=== PATIENT | male | born 1975 | race Caucasian/White ===

== ENCOUNTER 2020-03-24 09:30 | Inpatient (IN) | payer OTHER ==
--- NOTE | 2020-03-24 10:42 | BHS.RME ---
Substance Use & Tx History - Substance Use History Alcohol Substance amount: 1 liiter of whisky 6 pack beer Frequency of use: Daily Substance route: Oral Date of Last Use: 03/23/20 Marijuana/Hashish Substance amount: $30 Frequency of use: Daily Substance route: Smoking Date of Last Use: 03/23/20 - Last Treatment Date of last treatment: Never Physical/Psych/Mental Status - Behavior General Behavior: Increased activity (restlessness, agitation) Eye Contact: Normal Other Behaviors: Mannerisms - Cooperativeness Cooperativeness: Cooperative - Thinking Thought Processes: Goal Directed Thought content: Future oriented - Physical Health Problems Is patient presently having any pain?: No Does patient presently have any injuries (include location): Yes (s/p fall with knee abrasion) Does patient currently have a fever: No CIWA Nausea/Vomitin-Mild Nausea/No Vomiting Muscle Tremors: 1-None Visible, but [place] Anxiety: 1-Mildly Anxious Agitation: 1-Slight > Activity Paroxysmal Sweats: 1-Minimal Palms Moist Orientation: 0-Oriented Tacttile Disturbances: 1-Very Mild Itch/Numbness Auditory Disturbances: 0-None Visual Disturbances: 0-None Headache: 1-Very Mild CIWA-Ar Total Score: 7
--- NOTE | 2020-03-24 10:45 | HP ---
CIWA Score Nausea/Vomitin-Mild Nausea/No Vomiting Muscle Tremors: 1-None Visible, but [place] Anxiety: 1-Mildly Anxious Agitation: 1-Slight > Activity Paroxysmal Sweats: 1-Minimal Palms Moist Orientation: 0-Oriented Tacttile Disturbances: 1-Very Mild Itch/Numbness Auditory Disturbances: 0-None Visual Disturbances: 0-None Headache: 1-Very Mild CIWA-Ar Total Score: 7 - Admission Criteria [facility]ASAS Guidelines: Admission for Medically Managed Detox: Requires at least one of the followin. CIWA greater than 12 2. Seizures within the past 24 hours 3. Delirium tremens within the past 24 hours 4. Hallucinations within the past 24 hours 5. Acute intervention needed for co occurring medical disorder 6. Acute intervention needed for co occurring psychiatric disorder 7. Severe withdrawal that cannot be handled at a lower level of care (continued vomiting, continued diarrhea, abnormal vital signs) requiring intravenous medication and/or fluids 8. Patient presents the following: Seizures, delirium tremens or hallucinations in the past 12 hours Admission Criteria Met: Admission criteria met Admission ROS [facility] Chief Complaint: Withdrawal sx Allergies/Adverse Reactions: Allergies Allergy/AdvReac Type Severity Reaction Status Date / Time shellfish derived Allergy Intermediate Rash Verified 03/24/20 11:18 History of Present Illness: Patient is a 44 years old male brought in from [facility] where he was observed last night for alcohol intoxication. As per patient, he was given IVF, no other meds were given. He has no recollection of how he ended up in the ED. He reports several such blackouts in the past. This is his first detox treatmen t. Exam Limitations: No Limitations - Ebola screening Have you traveled outside of the country in the last 21 days: No Have you had contact with anyone from an Ebola affected area: No Have you been sick,other than usual withdrawal symptoms: No Do you have a fever: No - Review of Systems Constitutional: Weakness EENT: reports: No Symptoms Reported Respiratory: reports: Cough (r/t smoking) Cardiac: reports: No Symptoms Reported GI: reports: Abdominal cramping Musculoskeletal: reports: Back Pain, Joint Pain, Muscle Pain, Muscle Weakness Integumentary: reports: Bruising Neuro: reports: Headache, Numbness Endocrine: reports: No Symptoms Reported Hematology: reports: No Symptoms Reported Psychiatric: reports: No Sypmtoms Reported Other Systems: Reviewed and Negative Patient History - Patient Medical History Hx Anemia: No Hx Asthma: No Hx Chronic Obstructive Pulmonary Disease (COPD): No Hx Cancer: No Hx Cardiac Disorders: No Hx Congestive Heart Failure: No Hx Hypertension: No Hx Hypercholesterolemia: No Hx Pacemaker: No HX Cerebrovascular Accident: No Hx Seizures: No Hx Dementia: No Hx Diabetes: No Hx Gastrointestinal Disorders: No Hx Liver Disease: No Hx Genitourinary Disorders: No Hx Sexually Transmitted Disorders: No Hx Renal Disease (ESRD): No Hx Thyroid Disease: No Hx Human Immunodeficiency Virus (HIV): No Hx Hepatitis C: No Hx Depression: No Hx Suicide Attempt: No Hx Bipolar Disorder: No Hx Schizophrenia: No - Patient Surgical History Past Surgical History: No - PPD History Previous Implant?: Yes Documented Results: Negative w/o proof Implanted On Prior [facility] Admission?: No PPD to be Administered?: Yes - Smoking Cessation Smoking history: Current every day smoker Have you smoked in the past 12 months: Yes Aproximately how many cigarettes per day: 40 Hx Chewing Tobacco Use: No Initiated information on smoking cessation: Yes 'Breaking Loose' booklet given: 03/24/20 - Substances abused Alcohol Substance route: Oral Frequency: Daily Amount used: WHISKEY 1 L Age of first use: 13 Date of last use: 03/24/20 Cocaine Substance route: Inhalation Frequency: 1-2 times per week Amount used: 1 BAG Age of first use: 40 Date of last use: 03/23/20 Admission Physical Exam [facility] - Physical General Appearance: Yes: No Apparent Distress HEENTM: Yes: EOMI, Hearing grossly Normal, Normocephalic, Normal Voice Respiratory: Yes: Chest Non-Tender, Lungs Clear, Normal Breath Sounds, No Respiratory Distress, No Accessory Muscle Use Neck: Yes: No masses,lesions,Nodules, Supple Breast: Yes: Breast Exam Deferred Cardiology: Yes: Regular Rhythm, Regular Rate, S1, S2 Abdominal: Yes: Normal Bowel Sounds, Non Tender, Soft Genitourinary: Yes: Within Normal Limits Back: Yes: Normal Inspection Musculoskeletal: Yes: full range of Motion, Gait Steady, Pelvis Stable Extremities: Yes: Tremors, Other (left knee old bruises, right nee new bruise, right elbow old bruise) Neurological: Yes: sales intern II-XII NML intact, Alert, Normal Mood/Affect, Normal Response Integumentary: Yes: Cold, Other (multiple bruises to extremities and back) Lymphatic: Yes: Within Normal Limits Cleared for Admission S - Detox or Rehab [facility] Level of Care: Medically Managed Detox Regimen/Protocol: Librium Claeared for Rehab Admission: No Breathalyzer - Breathalyzer Breathalyzer: 0.179 Urine Drug Screen - Test Device Lot number: [id number] Expiration date: 04/30/21 - Control Is test valid?: Yes - Results Drug screen NEGATIVE: No Urine drug screen results: THC-Marijuana, AGUSTÍN-Cocaine Inpatient Rehab Admission - Rehab Decision to Admit Inpatient rehab admission?: No
[2020-03-24] MEDS ORDERED: MENTHOL/PHENOL 1 EACH UD MM PRN (10:54)
[2020-03-24] MEDS ORDERED: METHOCARBAMOL 500 MG TABLET PO PRN (10:54)
[2020-03-24] MEDS ORDERED: chlordiazePOXIDE HCL 10 MG CAPSULE PO PRN (10:54)
[2020-03-24] MEDS ORDERED: ACETAMINOPHEN 325 MG TABLET (FP) PO PRN ×2 (10:54)
[2020-03-24] MEDS ORDERED: MAGNESIUM HYDROX 2400MG/30ML ORAL SUSPENSION 30 ML CUP PO PRN (10:54)
[2020-03-24] MEDS ORDERED: hydrOXYzine PAMOATE 25 MG CAPSULE (FP) PO PRN (10:54)
[2020-03-24] MEDS ORDERED: NICOTINE POLACRILEX 2 MG GUM BUC PRN (10:54)
[2020-03-24] MEDS ORDERED: ONDANSETRON *ODT* 4 MG TABLET SL ONE (10:54)
[2020-03-24] MEDS ORDERED: BISMUTH SUBSALICYLATE 524 MG/30 ML UD PO PRN (10:54)
[2020-03-24] MEDS ORDERED: MAG HYDROX/AL HYDROX/SIMETH 30 ML UNIT-DOSE CUP PO PRN (10:54)
[2020-03-24] MEDS ORDERED: MAGNESIUM CITRATE 300 ML BOTTLE PO PRN (10:54)
[2020-03-24] MEDS ORDERED: IBUPROFEN 400 MG TABLET (FP) PO PRN (10:54)
[2020-03-24] MEDS ORDERED: BACITRACIN 15 GM TUBE TOPICAL OINTMENT TP SCH (11:00)
[2020-03-24 11:25] VITALS: BMI 20.3
[2020-03-24] MEDS: chlordiazePOXIDE HCL 25 MG CAPSULE PO SCH ×2 (12:10→21:31)
[2020-03-24] MEDS ORDERED: BACITRACIN 0.9 GM PACKET TP SCH (15:21)
[2020-03-24] MEDS ORDERED: THIAMINE HCL 100 MG TABLET (FP) PO SCH (22:00)
[2020-03-24] MEDS ORDERED: MELATONIN 5 MG TABLETS PO SCH (22:00)
[2020-03-25] MEDS: chlordiazePOXIDE HCL 25 MG CAPSULE PO SCH ×2 (05:53→13:11)
[2020-03-25] MEDS ORDERED: NICOTINE 14 MG/24 HOURS TOPICAL PATCH TD SCH (10:00)
[2020-03-25] MEDS ORDERED: PRENATAL VITAMINS W/ FOLIC ACID TABLET (FP) PO SCH (10:00)
[2020-03-25 10:23] LABS: HEMATOCRIT 48.3 % (35.4-49); HEMOGLOBIN 16.2 GM/dL (11.7-16.9); MCH 32.7 pg (25.7-33.7); MCHC 33.5 g/dl (32.0-35.9); MEAN CELL VOLUME 97.8 fl (80-96); MEAN PLT VOLUME 8.5 fl (7.5-11.1); PLATELET COUNT 348 K/MM3 (134-434); RBC 4.94 M/mm3 (4.00-5.60); RDW 13.1 % (11.9-15.9); WHITE BLOOD COUNT 9.2 K/mm3 (4.0-10.0)
[2020-03-25 10:34] LABS: ALBUMIN 3.6 g/dl (3.4-5.0); CALCIUM 9.6 mg/dL (8.5-10.1); CREATININE 0.9 mg/dL (0.55-1.3); POTASSIUM 3.7 mmol/L (3.5-5.1); TOT PROT 7.4 g/dl (6.4-8.2)
[2020-03-25 13:10] VITALS: BP 114/64; PULSE 73; TEMP 96.9
--- NOTE | 2020-03-25 13:13 | DS ---
[facility] Detox Discharge Summary Admission Date: 03/24/20 Discharge Date: 03/25/20 - History Present History: Alcohol Dependence Additional Comments: 44 years old male admitted on 03/24/20 for alcohol withdrawal sx management mr ramos states that he was at the [facility] for "couple days" for fall right knee cap injured right knee anterior skin abrasion noted redness tender on palpation denies pain while ambulation mr ramos insists to leave the detox unit due to "I have to work" mr ramos ate breakfast and lunch and showered alert oriented x 3 speech clearly coherently ambulating steady gaits respiratory clear lung sounds bilaterally on auscultation abdomen soft flat no rebound tenderness extremities full range of motion Pertinent Past History: time for discharge 55 minutes treatment team met with the patient discussing the benefits of librium completion mr ramos first [facility] admission states that he does not have support system but working currently girlfriend may reject mr ramos return against medical advice is appropriated due to lack of support networking no aftercare referral as per mr ramos preference - Physical Exam Results Vital Signs: Vital Signs Temperature 96.9 F L 03/25/20 12:35 Pulse Rate 73 03/25/20 12:35 Respiratory Rate 18 03/25/20 12:35 Blood Pressure 114/64 03/25/20 12:35 O2 Sat by Pulse Oximetry (%) 97 03/25/20 12:35 Pertinent Admission Physical Exam Findings: alcohol withdrawal Laboratory Tests 03/25/20 03/25/20 03/25/20 06:45 06:45 06:45 WBC 9.2 RBC 4.94 Hgb 16.2 Hct 48.3 MCV 97.8 H MCH 32.7 MCHC 33.5 RDW 13.1 Plt Count 348 MPV 8.5 Sodium 139 Potassium 3.7 Chloride 105 Carbon Dioxide 28 Anion Gap 7 L BUN 10.0 Creatinine 0.9 Est GFR (CKD-EPI)AfAm 119.97 Est GFR (CKD-EPI)NonAf 103.51 Random Glucose 90 Calcium 9.6 Total Bilirubin 1.0 AST 47 H ALT 27 Alkaline Phosphatase 94 Total Protein 7.4 Albumin 3.6 Syphilis Serology Non-reactive covid pending - Treatment Hospital Course: Detox Protocol Followed, Responded well Patient has Accepted a Rehab Referral to: community support AA - Medication Discharge Medications: Ambulatory Orders NK [No Known Home Medication] 03/24/20 - Diagnosis (1) Alcohol abuse, uncomplicated Status: Acute (2) Nicotine addiction Status: Acute Qualifiers: Nicotine product type: cigarettes Substance use status: in withdrawal Qualified Code(s): F17.213 - Nicotine dependence, cigarettes, with withdrawal - AMA Did Patient Leave Against Medical Advice: Yes CIWA Score - CIWA Score Nausea/Vomitin-Mild Nausea/No Vomiting Muscle Tremors: 1-None Visible, but [place] Anxiety: 1-Mildly Anxious Agitation: 1-Slight > Activity Paroxysmal Sweats: No Perspiration Orientation: 0-Oriented Tacttile Disturbances: 0-None Auditory Disturbances: 0-None Visual Disturbances: 0-None Headache: 0-None Present CIWA-Ar Total Score: 4
[2020-03-26] MEDS ORDERED: chlordiazePOXIDE 5 MG CAPSULE PO SCH (05:00)
[2020-03-27] MEDS ORDERED: chlordiazePOXIDE HCL 10 MG CAPSULE PO PRN
[2020-03-27] MEDS ORDERED: chlordiazePOXIDE HCL 10 MG CAPSULE PO SCH (05:00)
[2020-03-28] MEDS ORDERED: chlordiazePOXIDE HCL 10 MG CAPSULE PO ONE (05:00)
== END 2020-03-25 14:00 | disposition left against medical advice (07) | DRG 770 ==
LOC: YASAS 09:30 → Y3N 10:57
PROVIDERS: ADMIT Allergy & Immunology; ATTEND Allergy & Immunology
PROC: HZ2ZZZZ Detoxification Services for Substance Abuse Treatment (ICD-10-PCS; principal; 2020-03-24)
DX: F10.230 Alcohol dependence with withdrawal, uncomplicated (principal); F12.20 Cannabis dependence, uncomplicated; F17.213 Nicotine dependence, cigarettes, with withdrawal; J41.0 Simple chronic bronchitis
CPT/HCPCS: 36415; 80053; 85027; 86780; U0003